=== PATIENT | female | born 1960 | race Caucasian/White ===

== ENCOUNTER → 2022-05-11 | Outpatient (RCR) | payer BC | LOC: OT 05-04 10:10 | PROVIDERS: ATTEND Specialist | DX: S46.091A Other injury of muscle(s) and tendon(s) of the rotator cuff of right shoulder, initial encounter (principal) ==

== ENCOUNTER 2022-06-03 10:00 | Outpatient (RCR) | payer BC | END 2022-06-08 | LOC: OT 10:00 | PROVIDERS: ATTEND Specialist | DX: S46.091A Other injury of muscle(s) and tendon(s) of the rotator cuff of right shoulder, initial encounter (principal) ==